=== PATIENT | male | born 1955 | race Caucasian/White ===

== ENCOUNTER 2017-07-22 16:27 | Emergency (ER) | payer OTHER ==
[2017-07-22] MEDS ORDERED: LIDOCAINE MPF 2%-EPI 1:200000 10 ML VIAL SUBQ STA (16:54)
[2017-07-22] MEDS ORDERED: LIDOCAINE MPF 2%-EPI 1:200000 20 ML VIAL SUBQ SCH (17:00)
--- NOTE | 2017-07-22 17:10 | ED Physician Documentation ---
PD HPI UPPER EXT INJURY - Stated complaint Stated Complaint: WRIST LAC - Chief complaint Chief Complaint: Laceration - History obtained from History obtained from: Patient - History of Present Illness Location: Left, Wrist Type of injury: Laceration Where injury occurred: Home Timing - onset: How many hours ago (1) Timing - duration: Hours (1) Timing - details: Abrupt onset Pain level max: 4 Pain level now: 2 Improved by: Rest Worsened by: Moving, Palpating Associated symptoms: No: Weakness, Numbness, Tingling, Swelling Contributing factors: No: Anticoagulated - Additonal information Additional information: pt is right handed. td UTD 2013. States cut wrist with metal grinding wheel. Review of Systems Neurologic: denies: Focal weakness, Numbness PD PAST MEDICAL HISTORY - Past Medical History Past Medical History: Yes Cardiovascular: Hypertension, Murmur Derm: Eczema Other Past Medical History: esophagitis - Past Surgical History Past Surgical History: Yes HEENT: Other - Present Medications Home Medications: Ambulatory Orders Medication Instructions Recorded Confirmed Amlodipine Besylate [Norvasc] 10 mg PO DAILY 06/22/16 07/22/17 Loratadine [Claritin] 10 mg PO DAILY 06/22/16 07/22/17 Telmisartan 80 mg PO BID 06/22/16 07/22/17 hydroCHLOROthiazide 12.5 mg PO DAILY 06/22/16 07/22/17 [Hydrochlorothiazide] Diphenoxylate/Atropine [Lomotil] 1 each PO QID PRN #14 tablet 06/23/16 07/22/17 - Allergies Allergies/Adverse Reactions: Allergies Allergy/AdvReac Type Severity Reaction Status Date / Time ibuprofen Allergy Hives Verified 07/22/17 16:34 lisinopril AdvReac Respiratory Verified 07/22/17 16:34 - Social History Does the pt smoke?: No Smoking Status: Never smoker Does the pt drink ETOH?: Yes Does the pt have substance abuse?: No - Immunizations Immunizations are current?: Yes - POLST Patient has POLST: No PD ED PE NORMAL - Vitals Vital signs reviewed: Yes - General General: Alert and oriented X 3, No acute distress - Derm Derm: Warm and dry - Neuro Neuro: Alert and oriented X 3 - Psych Psych: Normal mood PD ED PE EXPANDED - Extremities SIMEON UE/Hands Visual: 1 - laceration (3cm, linear, deep. NVI. tendon intact.) Results - Vitals Vitals: Vital Signs - 24 hr 07/22/17 07/22/17 16:30 17:55 Temperature 37 C 36.5 C Heart Rate 70 98 Respiratory 18 18 Rate Blood Pressure 169/81 H 159/78 H O2 Saturation 98 99 Oxygen O2 Source Room air Procedures - Laceration (location) L wrist Length in cm: 3 Wound type: Linear, Into subcut fat, Clean Neurovascular status: Sensory intact, Motor intact, Vascular intact Tendon involvement: Tendon intact Anesthesia: Lidocaine 2% with epi Wound Preparation: Irrigated copiously NS (1L) Skin layer closure: Nylon, Size #-0 - enter number (4), Sutures - enter # (6) Other: Patient tolerated well, No complications, Neurovascular intact, Dressing applied, Tetanus UTD Complexity: Simple PD MEDICAL DECISION MAKING - ED course Complexity details: considered differential, d/w patient ED course: Patient is a 61-year-old male who presents to the emergency department with a left wrist laceration from a grinding wheel. This was irrigated with over a liter of fluid and repaired. Tolerated well. No ligamentous or tendon injuries. No vascular injury. No nerve injury. No bony injury. Warnings of infection and instructions on wound care given at bedside. Also counseled on how to minimize scarring. Patient and family counseled regarding signs and symptoms for which I believe and urgent re-evaluation would be necessary. Patient with good understanding of and agreement to plan and is comfortable going home at this time This document was made in part using voice recognition software. While efforts are made to proofread this document, sound alike and grammatical errors may occur. Departure - Departure Disposition: 01 Home, Self Care Clinical Impression: Wrist laceration Qualifiers: Encounter type: initial encounter Laterality: left Qualified Code(s): S61.512A - Laceration without foreign body of left wrist, initial encounter Condition: Good Instructions: ED Laceration All Follow-Up: Provider,Other [Physician No Access] - (in 10-14 days for suture removal) Comments: Keep the wound clean. Sutures should be removed in 10-14 days. Return if you notice redness, swelling, or drainage from the wound. Discharge Date/Time: 07/22/17 18:00
[2017-07-22] MEDS ORDERED: BACITRACIN OINT TOP ONE (17:52)
[2017-07-22 17:55] VITALS: BP 159/78
== END 2017-07-22 18:00 | disposition home or self-care (01) ==
LOC: ED 16:27
DX: S61.512A Laceration without foreign body of left wrist, initial encounter (principal); I10 Essential (primary) hypertension; Y92.009 Unspecified place in unspecified non-institutional (private) residence as the place of occurrence of the external cause; W31.1XXA Contact with metalworking machines, initial encounter
CPT/HCPCS: 12002; 99282; 99283; A9270

== ENCOUNTER 2019-05-28 14:18 | Outpatient (CLI) | payer MEDICARE ==
--- NOTE | 2019-05-29 15:29 | XRAY Report ---
Reason: PAIN IN LEFT HAND Procedure Date: 05/28/2019 Accession Number: [id number] / [id number] Procedure: XRS - Hand 2 View LT CPT Code: Final Report FULL RESULT: EXAM: LEFT HAND RADIOGRAPHY EXAM DATE: 05/28/2019 02:29 PM. CLINICAL HISTORY: PAIN IN LEFT HAND. COMPARISON: None. TECHNIQUE: 2 views. FINDINGS: Bones: No fractures or bone lesions. 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 Otherwise unremarkable. Soft Tissues: Unremarkable. IMPRESSION: 1. No acute osseous abnormality. RADIA
== END 2019-05-28 14:19 | disposition home or self-care (01) ==
LOC: DI.S 14:18
PROVIDERS: ATTEND Internal Medicine
DX: M79.642 Pain in left hand (principal)

== ENCOUNTER 2019-10-06 09:20 | Outpatient (CLI) | payer MEDICARE ==
[2019-10-06 17:47] LABS: CHOL/HDL RATIO 3.6 (<5.0); CHOLESTEROL 217 mg/dL; GLUCOSE,FASTING 110 mg/dL (70-100); HDL CHOLESTEROL 61 mg/dL; LDL CHOLESTEROL,CALCULATED 140 mg/dL; LDL/HDL RATIO 2.3 (<3.6); VLDL CHOLESTEROL 16 mg/dL
== END 2019-10-06 09:21 | disposition home or self-care (01) ==
LOC: LAB.S 09:20
PROVIDERS: ATTEND Internal Medicine
DX: Z13.220 Encounter for screening for lipoid disorders (principal); Z13.1 Encounter for screening for diabetes mellitus; Z12.5 Encounter for screening for malignant neoplasm of prostate
CPT/HCPCS: 36415; 80061; 82947; G0103; 83721; 84153

== ENCOUNTER 2020-06-14 00:47 | Outpatient (CLI) | payer MEDICARE | END 2020-06-14 00:48 | disposition critical access hospital (66) | LOC: EMS 00:47 | PROVIDERS: ATTEND Surgery | DX: R55 Syncope and collapse (principal) | CPT/HCPCS: A0425; A0429 ==

== ENCOUNTER 2020-06-14 01:22 | Emergency (ER) | payer MEDICARE ==
[2020-06-14] MEDS ORDERED: SODIUM CHLORIDE 0.9% 1,000 ML IV STA ×2 (01:31→02:54)
--- NOTE | 2020-06-14 01:43 | ED Physician Documentation ---
PD HPI SYNCOPE - Stated complaint Stated Complaint: SYNCOPE - History obtained from History obtained from: Patient, Family - History of Present Illness Witnessed: Witnessed Timing - onset: Today Duration: Seconds Preceding symptoms: Vision changes, Diaphoresis, Light headed, Generalized weakness, Other (after urinating) Associated symptoms: Vision changes, Palpitations Contributing factors: Recent med change, Other (just after urination) Injury occurred: None Similar symptoms before: Diagnosis (vasovagal syncope with diarrhea) Recently seen: Clinic (The patient is undergoing evaluation for palpitations) - Additional information Additional information: 64-year-old male on hydrothiazide with up to go to the bathroom this evening when he had a syncopal episode. He was attended to by his with a check of his orthostatics and he was orthostatic. He has been undergoing evaluation for PACs and he has been asked to take his blood pressure frequently and he has recently refilled his prescription for hydrochlorothiazide. He is taking it twice per day 12.5 mg. He has had symptoms of excessive thirst and frequent urination. Review of Systems Constitutional: denies: Fever Eyes: denies: Decreased vision, Photophobia Ears: denies: Ear pain Nose: denies: Rhinorrhea / runny nose, Congestion Throat: denies: Sore throat Cardiac: reports: Palpitations. denies: Chest pain / pressure Respiratory: reports: Dyspnea. denies: Cough GI: denies: Abdominal Pain, Nausea, Vomiting : reports: Frequency. denies: Dysuria, Incontinent Skin: denies: Rash Musculoskeletal: reports: Extremity pain. denies: Neck pain, Back pain Neurologic: reports: Syncope. denies: Generalized weakness, Focal weakness, Numbness, Seizure, Confused, Altered mental status Endocrine: reports: Polydypsia, Polyuria PD PAST MEDICAL HISTORY - Past Medical History Past Medical History: Yes Cardiovascular: Hypertension, Murmur Derm: Eczema - Past Surgical History Past Surgical History: Yes HEENT: Other - Present Medications Home Medications: Ambulatory Orders Medication Instructions Recorded Confirmed Amlodipine Besylate [Norvasc] 10 mg PO DAILY 06/22/16 07/22/17 Loratadine [Claritin] 10 mg PO DAILY 06/22/16 07/22/17 Telmisartan 80 mg PO BID 06/22/16 07/22/17 hydroCHLOROthiazide 12.5 mg PO DAILY 06/22/16 07/22/17 [Hydrochlorothiazide] Diphenoxylate/Atropine [Lomotil] 1 each PO QID PRN #14 tablet 06/23/16 07/22/17 - Allergies Allergies/Adverse Reactions: Allergies Allergy/AdvReac Type Severity Reaction Status Date / Time ibuprofen Allergy Hives Verified 06/14/20 01:32 lisinopril AdvReac Respiratory Verified 06/14/20 01:32 - Social History Does the pt smoke?: No Smoking Status: Never smoker Does the pt drink ETOH?: Yes Does the pt have substance abuse?: No - Immunizations Immunizations are current?: Yes - POLST Patient has POLST: No PD ED PE NORMAL - Vitals Vital signs reviewed: Yes (hypertensive ) - General General: Alert and oriented X 3, No acute distress, Well developed/nourished - HEENT HEENT: Atraumatic, PERRL, EOMI - Neck Neck: Supple, no meningeal sign, No bony TTP - Cardiac Cardiac: RRR, No murmur - Respiratory Respiratory: No respiratory distress, Clear bilaterally - Abdomen Abdomen: Normal bowel sounds, Soft, Non tender, Non distended, No organomegaly - Back Back: No CVA TTP, No spinal TTP - Derm Derm: Normal color, Warm and dry, No rash - Extremities Extremities: No deformity, No edema - Neuro Neuro: Alert and oriented X 3, vba developer 2-12 intact, No motor deficit, No sensory deficit, Normal speech Eye Opening: Spontaneous Motor: Obeys Commands Verbal: Oriented GCS Score: 15 - Psych Psych: Normal mood, Normal affect Results - Vitals Vitals: Vital Signs - 24 hr 06/14/20 06/14/20 06/14/20 01:32 01:37 02:43 Temperature 37.1 C 37.1 C 37.1 C Heart Rate 78 78 71 Respiratory 18 18 18 Rate Blood Pressure 154/74 H 154/74 H 163/85 H O2 Saturation 100 100 100 06/14/20 03:20 Temperature 37.1 C Heart Rate 62 Respiratory 18 Rate Blood Pressure 152/81 H O2 Saturation 100 Oxygen O2 Source Room air - EKG (time done) 0142 Rate: Rate (enter#) (64) Rhythm: NSR [place]: Normal Intervals: Wide QRS (borderline ) Compare to prior EKG: Changed from prior EKG (SPT 06-22-2016 the tracing no longer supports LAE. ) Computer interpretation: Agree with computer - Labs Labs: Laboratory Tests 06/14/20 06/14/20 06/14/20 01:40 01:55 01:55 WBC 9.0 RBC 5.09 Hgb 15.1 Hct 43.2 MCV 84.9 MCH 29.7 MCHC 35.0 RDW 12.5 Plt Count 258 MPV 9.6 Neut # (Auto) 7.0 H Lymph # (Auto) 0.9 L [place] # (Auto) 0.9 Eos # (Auto) 0.1 Baso # (Auto) 0.0 Absolute Nucleated RBC 0.00 Nucleated RBC % 0.0 Sodium 137 Potassium 3.2 L Chloride 101 Carbon Dioxide 26 Anion Gap 10.0 BUN 21 H Creatinine 1.3 H Estimated GFR (MDRD) 55 L Glucose 136 H Lactic Acid Calcium 10.1 Total Bilirubin 0.9 AST 26 ALT 26 Alkaline Phosphatase 49 Troponin I High Sens Total Protein 7.5 Albumin 4.5 Globulin 3.0 Albumin/Globulin Ratio 1.5 Triglycerides Cholesterol LDL Cholesterol, Calc VLDL Cholesterol HDL Cholesterol LDL/HDL Ratio Cholesterol/HDL Ratio Lipase 35 Urine Color YELLOW Urine Clarity CLEAR Urine pH 7.5 Ur Specific [place] 1.015 Urine Protein NEGATIVE Urine Glucose (UA) NEGATIVE Urine Ketones NEGATIVE Urine Occult Blood NEGATIVE Urine Nitrite NEGATIVE Urine Bilirubin NEGATIVE Urine Urobilinogen 0.2 (NORMAL) Ur Leukocyte Esterase NEGATIVE Ur Microscopic Review NOT INDICATED Urine Culture Comments NOT INDICATED 06/14/20 06/14/20 06/14/20 01:55 01:55 01:55 WBC RBC Hgb Hct MCV MCH MCHC RDW Plt Count MPV Neut # (Auto) Lymph # (Auto) [place] # (Auto) Eos # (Auto) Baso # (Auto) Absolute Nucleated RBC Nucleated RBC % Sodium Potassium Chloride Carbon Dioxide Anion Gap BUN Creatinine Estimated GFR (MDRD) Glucose Lactic Acid 1.5 Calcium Total Bilirubin AST ALT Alkaline Phosphatase Troponin I High Sens 7.6 Total Protein Albumin Globulin Albumin/Globulin Ratio Triglycerides 81 Cholesterol 153 LDL Cholesterol, Calc 67 VLDL Cholesterol 16 HDL Cholesterol 70 LDL/HDL Ratio 1.0 Cholesterol/HDL Ratio 2.2 Lipase Urine Color Urine Clarity Urine pH Ur Specific [place] Urine Protein Urine Glucose (UA) Urine Ketones Urine Occult Blood Urine Nitrite Urine Bilirubin Urine Urobilinogen Ur Leukocyte Esterase Ur Microscopic Review Urine Culture Comments Procedures - IVC sono (time) 0138 Bedside IVC sono: IVC measures (cm) (0.77), IVC collapsed c insp (cm) (0.4), Dehydration (est 2-3 liter deficit) PD MEDICAL DECISION MAKING - ED course Complexity details: reviewed old records, reviewed results, re-evaluated patient, considered differential, d/w patient ED course: 64-year-old male on hydrochlorothiazide has had a syncopal episode and he is found to be dehydrated on interrogation of inferior vena cava on the level of 2+ liters. He is administered a liter of saline he produces a liter of dilute urine. He is administered a second liter of saline. He gives history consistent with episodic dehydration and he is having some typical dehydration symptoms including palpitations. I have advised the patient to stop the HCTZ for now and to follow up with his primary. I did not feel his diuresis was related to his diabetes as this appears mild at best. He does appear to have acute kidney injury with CR increased to 1.3. Departure - Departure Disposition: 01 Home, Self Care Clinical Impression: Syncope Qualifiers: Syncope type: unspecified Qualified Code(s): R55 - Syncope and collapse Condition: Stable Instructions: ED Dehydration Follow-Up: Isaías Baeza MD [Primary Care Provider] - Comments: Today it appears her syncopal episode is related to volume depletion and this is likely secondary to your use of hydrochlorothiazide my recommendation is to discontinue the use of the high hydrochlorothiazide and follow-up with your primary care doctor about potential initiation of an alternative antihypertensive agent.
[2020-06-14 01:51] LABS: BILIRUBIN,URINE NEGATIVE (NEGATIVE); GLUCOSE, URINE (UA) NEGATIVE (NEGATIVE); KETONES,URINE (UA) NEGATIVE (NEGATIVE); LEUKOCYTE ESTERASE, URINE NEGATIVE (NEGATIVE); NITRITE,URINE NEGATIVE (NEGATIVE); OCCULT BLOOD,URINE NEGATIVE (NEGATIVE); PH,URINE 7.5 PH (5.0-7.5); PROTEIN,URINE NEGATIVE (NEGATIVE); UROBILINOGEN,URINE 0.2 (NORMAL) E.U./dL (NORMAL)
[2020-06-14 01:54] LABS: CLARITY,URINE CLEAR (CLEAR)
[2020-06-14 02:02] LABS: BASOPHILS % (AUTO) 0.3 %; EOSINOPHILS # (AUTO) 0.1 10^3/uL (0.0-0.7); EOSINOPHILS % (AUTO) 1.6 %; HGB - HEMOGLOBIN 15.1 g/dL (14.0-18.0); LYMPHOCYTES # (AUTO) 0.9 10^3/uL (1.5-3.5); LYMPHOCYTES % (AUTO) 9.7 %; MEAN CORPUSCULAR HEMOGLOBIN 29.7 pg (27.0-31.0); MEAN CORPUSCULAR VOLUME 84.9 fL (80.0-94.0); MEAN PLATELET VOLUME 9.6 fL (7.4-11.4); MONOCYTES # (AUTO) 0.9 10^3/uL (0.0-1.0); MONOCYTES % (AUTO) 10.3 %; NEUTROPHILS % (AUTO) 77.7 %; PLT - PLATELET COUNT 258 10^3/uL (130-450); RED BLOOD COUNT 5.09 10^6/uL (4.70-6.10); RED CELL DISTRIBUTION WIDTH 12.5 % (12.0-15.0)
[2020-06-14 02:15] LABS: ALBUMIN 4.5 g/dL (3.2-5.5); ALBUMIN/GLOBULIN RATIO 1.5 (1.0-2.2); BILIRUBIN,TOTAL 0.9 mg/dL (0.2-1.0); CALCIUM 10.1 mg/dL (8.5-10.3); CREATININE 1.3 mg/dL (0.6-1.2); TOTAL PROTEIN 7.5 g/dL (6.7-8.2)
[2020-06-14 02:25] LABS: CHOL/HDL RATIO 2.2 (<5.0); CHOLESTEROL 153 mg/dL; HDL CHOLESTEROL 70 mg/dL; LDL CHOLESTEROL,CALCULATED 67 mg/dL; VLDL CHOLESTEROL 16 mg/dL
[2020-06-14] MEDS ORDERED: POTASSIUM CHLORIDE 20 MEQ TABLET PO STA (02:25)
[2020-06-14 03:21] VITALS: BP 152/81
== END 2020-06-14 04:45 | disposition home or self-care (01) ==
LOC: EDUNIT# → ED 01:22
DX: E86.0 Dehydration (principal); Z79.899 Other long term (current) drug therapy
CPT/HCPCS: 36415; 80053; 80061; 81003; 83605; 83690; 84484; 85025; 93005; 96360; 96361; 99284; A9270; 81001; 83721; 87086